=== PATIENT | male | born 1970 | race Caucasian/White ===

== ENCOUNTER → 2018-12-16 | Outpatient (CLI) | payer BC ==
[2018-12-16 10:58] LABS: HEMATOCRIT 38.9 % (42.0-52.0); HEMOGLOBIN 12.9 g/dL (13.5-18.0); MEAN CELL VOLUME 98 fl (78-100); MEAN CORPUSCULAR HEMOGLOBIN 32 pg (27-31); MEAN CORPUSCULAR HGB CONC 33 g/dL (33-37); MEAN PLATELET VOLUME 8.3 fl (7.4-10.4); PLATELET COUNT 285 K/mm3 (130-400); RED BLOOD COUNT 3.99 M/mm3 (4.20-5.60); RED CELL DISTRIBUTION WIDTH 12.6 % (11.5-14.5); WHITE BLOOD COUNT 5.9 K/mm3 (4.8-10.8)
[2018-12-16 11:10] LABS: ALBUMIN 4.2 g/dL (3.5-5.0); POTASSIUM 4.2 mmol/L (3.5-5.1)
[2018-12-16 11:11] LABS: CALCIUM 9.8 mg/dL (8.3-10.5)
[2018-12-16 11:13] LABS: TOTAL PROTEIN 8.4 g/dL (6.4-8.3)
[2018-12-16 11:14] LABS: TOTAL BILIRUBIN 0.5 mg/dL (0.2-1.2)
[2018-12-16 11:54] LABS: LYMPHOCYTE 29 % (20-51); MONOCYTE 8 % (3-10); NEUTROPHILS 62 % (42-75)
[2018-12-16 12:14] LABS: ERYTHROCYTE SEDIMENTATION RATE 59 mm/hr (0-15)
[2018-12-18 01:48] LABS: ANA SCREEN with REFLEX Positive (Negative)
[2018-12-18 13:35] LABS: ANTI-CYC CITRULLINATED PEPT AB <15.6 U (())
== END ==
LOC: LAB 10:46
PROVIDERS: Internal Medicine
DX: Z00.00 Encounter for general adult medical examination without abnormal findings (principal); Z12.5 Encounter for screening for malignant neoplasm of prostate; M25.50 Pain in unspecified joint; I10 Essential (primary) hypertension; M79.10 Myalgia, unspecified site; Z12.11 Encounter for screening for malignant neoplasm of colon

== ENCOUNTER → 2018-12-21 | Outpatient (CLI) | payer BC | LOC: LAB 10:44 | DX: D64.9 Anemia, unspecified (principal) ==

== ENCOUNTER → 2020-05-15 | Outpatient (CLI) | payer BC | LOC: LAB 10:17 | DX: U07.1 COVID-19 (principal) ==

== ENCOUNTER → 2021-05-02 | Outpatient (CLI) | payer BC ==
[2021-05-02 10:46] LABS: BASO # 0.13 K/mm3 (0.02-0.10); EOS # 0.19 K/mm3 (0.04-0.40); EOS % 2.6 % (0.0-4.0); HEMATOCRIT 37.4 % (42.0-52.0); HEMOGLOBIN 12.5 g/dL (13.5-18.0); LYMPH# 1.28 K/mm3 (1.50-4.00); MEAN CELL VOLUME 97 fl (78-100); MEAN CORPUSCULAR HEMOGLOBIN 33 pg (27-31); MEAN CORPUSCULAR HGB CONC 33 g/dL (33-37); MEAN PLATELET VOLUME 8.9 fl (7.4-10.4); MONO # 0.75 K/mm3 (0.20-0.80); NEU # 5.05 K/mm3 (1.40-6.50); PLATELET COUNT 257 K/mm3 (130-400); RED BLOOD COUNT 3.85 M/mm3 (4.20-5.60); RED CELL DISTRIBUTION WIDTH 15.1 % (11.5-14.5); WHITE BLOOD COUNT 7.4 K/mm3 (4.8-10.8)
[2021-05-02 10:55] LABS: ALBUMIN 4.3 g/dL (3.5-5.0); POTASSIUM 4.7 mmol/L (3.5-5.1)
[2021-05-02 10:57] LABS: TOTAL PROTEIN 8.5 g/dL (6.4-8.3)
[2021-05-02 10:59] LABS: TOTAL BILIRUBIN 0.5 mg/dL (0.2-1.2)
[2021-05-02 11:07] LABS: CALCIUM 10.2 mg/dL (8.3-10.5)
== END ==
LOC: LAB 10:25
PROVIDERS: Internal Medicine
DX: Z00.00 Encounter for general adult medical examination without abnormal findings (principal); Z12.11 Encounter for screening for malignant neoplasm of colon; Z12.5 Encounter for screening for malignant neoplasm of prostate

== ENCOUNTER → 2021-07-23 | Outpatient (CLI) | payer BC | LOC: VAS 13:26 → RAD 13:26 | DX: R06.00 Dyspnea, unspecified (principal) ==

== ENCOUNTER → 2021-07-26 | Outpatient (CLI) | payer BC | LOC: CARDREHAB 08:43 | DX: R06.00 Dyspnea, unspecified (principal) | CPT/HCPCS: A9500 ==